=== PATIENT | female | born 1945 | race Caucasian/White ===

== ENCOUNTER 2019-04-19 12:08 | Observation (INO) | payer MEDICARE, SELFPAY ==
[2019-04-19] VITALS (7 sets, daily range): BP systolic 124–156; BP diastolic 57–92; PULSE 80–96; RESP 15–18; TEMP 36.4–36.7; O2SAT 88–97; BMI 32.4; BMI 32.5; BMI 31.8
--- NOTE | 2019-04-19 12:23 | ED.DCSUM_ITS ---
History of Present Illness Chief Complaint: Flank Pain Detail of Chief Complaint: Right flank pain Informant: Patient Onset: Today Context: Sudden Onset Timing: Continuous - Improved but not resolved Current Severity: Mild Maximum Severity: Moderate Narrative: Patient reports rather abrupt onset of right flank pain this morning. She had some nausea and dry heaves with the pain. She denies any recent dysuria or hematuria. Pain seemed to improve while in route to the hospital. Patient does report chronic right upper quadrant pain radiating into her right breast. This has been ongoing for several years and unchanged from baseline. - Past Medical History (1) CAD (coronary artery disease) Status: Chronic Comment: cath in the past with 20% (2) PAD (peripheral artery disease) Status: Chronic Past Medical History - Allergies and Home Meds Allergies/Adverse Reactions: Allergies Iodinated Contrast- Oral and IV Dye [DYEE] Allergy (Verified 04/19/19 12:12) Hives latex Allergy (Verified 04/19/19 12:12) Hives Penicillins Allergy (Verified 04/19/19 12:12) Hives Primary Care Physician: Marky Henderson MD [Primary Care Provider] - Prior records reviewed: Yes Past Medical History: - - Reviewed Surgical History: - - heart cath in 1194, parital hysterectemy, elbow surger, tumor removed on chest. Laparoscopic right hemicolectomy in 2016 Smoking Status: Former smoker - Family History Sibling Family History: Reports: Asthma, Pulmonary Disease, Renal Disease Maternal Family History: Reports: High Cholesterol, Heart Disease, Hypertension Paternal Family History: Reports: Pulmonary Disease Offspring Family History: Reports: Diabetes Review of Systems All systems negative except as indicated General: Denies: Chills, Fever Eyes: Denies: Visual changes - left, Visual changes - right ENT: Denies: Bilateral ear pain Cardiovascular: Denies: Chest pain, Palpitations Respiratory: Denies: Dyspnea, Cough, Sputum Gastrointestinal: Reports: Abdominal pain - Right flank pain, Nausea - With dry heaves Genitourinary: Denies: Dysuria, Hematuria, Frequency Musculoskeletal: Reports: Back pain - Right flank. Denies: Myalgias, Arthralgias Skin: Denies: Rash Neurological: Denies: Headache Endocrine: Denies: Polyuria, Polydipsia Allergy: Denies: Uticaria Physical Exam Vital Signs/Narrative: Vital Signs Temp Pulse Resp BP Pulse Ox 04/19/19 12:12 96 15 156/84 H 96 04/19/19 12:09 98.0 F 85 16 156/84 H 95 Inital Vital Signs reviewed: Yes General: Well nourished, Well developed Head: Normocephalic ENT: Moist mucous membranes Neck: Supple Cardiovascular: Regular rate, Regular rhythm Respiratory: No distress, CTA bilaterally Abdomen: Soft, Nontender, Normal bowel sounds Back: CVA tenderness - Mild tenderness in the right CVA region. Extremities: Nontender, No edema Skin: Normal color, No rash Neurological: Alert, Oriented x3 Psychological: Normal affect Diagnostic/Tx/Re-eval Impressions Abdomen/Pelvis CT 04/19/19 12:23 IMPRESSION: Mild hepatomegaly and fatty dictation of the liver. Diverticulosis in the left colon. Stable small cyst in the lower pole of the left kidney. Mild scarring at the lung bases. Electronically Signed: Delroy Tete, at 13:32 EDT , Service support , 04/19/19 12:23 Abdomen/Pelvis without Cont [CT] Stat Laboratory Results 04/19/19 04/19/19 04/19/19 12:38 12:38 12:38 WBC 10.8 RBC 5.05 Hgb 15.6 H Hct 47.2 H MCV 93.5 MCH 30.9 MCHC 33.1 RDW Std Deviation 44.1 H RDW Coeff of Jm 12.9 Plt Count 303 MPV 10.1 Immature Gran % (Auto) 0.400 Neut % (Auto) 86.8 H Lymph % (Auto) 8.4 L [place] % (Auto) 3.7 Eos % (Auto) 0.1 Baso % (Auto) 0.6 Absolute Neuts (auto) 9.4 H Absolute Lymphs (auto) 0.91 Absolute Nucleated RBC 0.00 Nucleated RBC % 0 D-Dimer Quant (PE/DVT) Sodium 135 L Potassium 4.6 Chloride 105 Carbon Dioxide 22.0 Anion Gap 8 BUN 11 Creatinine 0.97 Estim Creat Clear Calc 47.17 Est GFR (MDRD) Af Amer 73 Est GFR (MDRD) Non-Af 60 BUN/Creatinine Ratio 11.4 Glucose 152 H Calcium 9.2 Urine Color Yellow Urine Clarity Sl. Cloudy Urine pH 5.0 Ur Specific [place] 1.025 Urine Protein 30 H Urine Glucose (UA) Normal Urine Ketones 150 H Urine Occult Blood 10 H Urine Nitrite Negative Urine Bilirubin Negative Urine Urobilinogen Normal Ur Leukocyte Esterase 25 H Urine RBC 0-5 SEEN Urine WBC 0-5 SEEN Ur Squamous Epith Cells 5-10 SEEN Urine Bacteria 1+ Urine Mucus 2+ 04/19/19 04/19/19 15:43 16:51 WBC RBC Hgb Hct MCV MCH MCHC RDW Std Deviation RDW Coeff of Jm Plt Count MPV Immature Gran % (Auto) Neut % (Auto) Lymph % (Auto) [place] % (Auto) Eos % (Auto) Baso % (Auto) Absolute Neuts (auto) Absolute Lymphs (auto) Absolute Nucleated RBC Nucleated RBC % D-Dimer Quant (PE/DVT) Cancelled 0.46 Sodium Potassium Chloride Carbon Dioxide Anion Gap BUN Creatinine Estim Creat Clear Calc Est GFR (MDRD) Af Amer Est GFR (MDRD) Non-Af BUN/Creatinine Ratio Glucose Calcium Urine Color Urine Clarity Urine pH Ur Specific [place] Urine Protein Urine Glucose (UA) Urine Ketones Urine Occult Blood Urine Nitrite Urine Bilirubin Urine Urobilinogen Ur Leukocyte Esterase Urine RBC Urine WBC Ur Squamous Epith Cells Urine Bacteria Urine Mucus - Medical Decision Making Patient was initially given morphine, Zofran, and IV fluids. Shortly after returning from CT scan her pain recurred. She is given a second dose of morphine and Zofran. Following this her O2 sats did drop into the 80s and she was placed on nasal cannula. On my initial repeat evaluation she is resting comfortably and states her pain is significantly improved. Her oxygen was turned off and she maintained her sats in the mid 90s. I went to get her glass of water and when I returned patient was again vomiting. I was advised by nursing staff a short time later that her oxygen saturation had again dropped to 88% on room air and nasal cannula was replaced. We questioned potential for atypical presentation for PE and that she was having mid back pain to the right flank area. Her d-dimer returns negative. Patient again has had another episode of vomiting and was given Phenergan. We will admit her for flank pain, improved and intractable vomiting. Disposition: Admit ED Disposition - Plan for ED Patient: Disposition: Acute Care [facility] Diagnosis: Flank pain, Intractable vomiting Referrals: Marky Henderson MD [Primary Care Provider] -
--- NOTE | 2019-04-19 12:23 | CT_ITS ---
STUDY: CT ABDOMEN AND PELVIS WITHOUT CONTRAST REASON FOR EXAM: Female, 73 years old. Right flank pain. Prior right hemicolectomy. RADIATION DOSAGE (If Supplied By Facility): CTDIvol = ( 13.59 ) mGy, DLP = ( 743.48 ) mGycm TECHNIQUE: Transaxial images were obtained from the dome of the diaphragm to the symphysis pubis without oral contrast, and without intravenous contrast. Sagittal and coronal images were reconstructed. Individualized dose optimization techniques were used for this CT. COMPARISON: Comparison is made with prior study dated August 06, 2017. FINDINGS: Mild degree of scarring at the lung bases slightly more prominent on the left side. Coronary artery calcification. There is decreased attenuation of the liver consistent with steatosis. Mild hepatomegaly. Normal gallbladder and extrahepatic biliary system. Normal spleen. Normal pancreas. Normal bilateral adrenal glands. Normal right kidney. Stable 1.2 cm cyst in the lower pole of the left kidney. There is a small hiatal hernia. Normal small intestine. Prior right hemicolectomy. Diffuse diverticulosis of the left hemicolon. There are surgical clips in the region of the appendix consistent with a prior appendectomy. There is diffuse atherosclerotic calcification of the abdominal aorta and its major visceral branches, without a demonstrated aneurysm. Normal inferior vena cava. Normal retroperitoneum. Normal urinary bladder. There is absence of the uterus consistent with a prior hysterectomy. There is a small umbilical hernia containing fat. There are diffuse degenerative changes of the visualized lumbar spine. CT/Abdomen/Pelvis without Cont IMPRESSION: Mild hepatomegaly and fatty dictation of the liver. Diverticulosis in the left colon. Stable small cyst in the lower pole of the left kidney. Mild scarring at the lung bases. Electronically Signed: Delroy Epstein, at 13:32 EDT , Service support ,
[2019-04-19] MEDS: Morphine 4 MG/ML Syringe IV ×2 (12:43→13:30)
[2019-04-19] MEDS: Ondansetron 4 MG/2 ML Vial IV ×2 (12:43→13:30)
[2019-04-19] MEDS: 0.9% Normal Saline 1,000 ML 150 ML IV (12:43)
[2019-04-19 12:45] LABS: Color, Urine Yellow (Yellow); Glucose, Dipstick Normal (Normal); Leukocyte Esterase-Dipstick 25 /ul (Negative); Nitrite-Dipstick Negative (Negative); Occult Blood-Urine 10 /ul (Negative); Protein-Dipstick 30 mg/dl (Negative); Specific Gravity, Urine 1.025 (1.002-1.030); Urine Bilirubin Dipstick Negative (Negative); Urine Clarity Sl. Cloudy (Clear); Urine Urobilinogen Normal (Normal)
[2019-04-19 12:46] LABS: Absolute Lymphocyte Count 0.91 X10^3/uL (0.83-4.51); Absolute Neutrophil Count 9.4 X10^3/uL (2.0-7.7); Basophil# 0.06 X10^3/uL; Basophil% 0.6 % (0-1); Eosinophil# 0.01 X10^3/uL; Eosinophils% 0.1 % (0-5); Hematocrit 47.2 % (37-47); Hemoglobin 15.6 g/dL (12.0-15.0); Lymphocyte # 0.91 X10^3/ul (4.0); Lymphocyte % 8.4 % (19-41); Mean Corp Hgb Conc 33.1 g/dL (32-36); Mean Corpuscular Hgb 30.9 pg (27.0-32.0); Mean Corpuscular Volume 93.5 fL (81-99); Mean Platelet Vol. 10.1 fl (6.2-12.0); Monocyte% 3.7 % (0-10); NRBC Flagged by Analyzer 0 % (0-5); Neutrophil % 86.8 % (47-70); Platelet Count 303 K/mm3 (150-450); RBC Distribution Width CV 12.9 % (11.6-14.6); RBC Distribution Width SD 44.1 fl (35.1-43.9); Red Blood Count 5.05 M/mm3 (4.2-5.4); White Blood Count 10.8 K/mm3 (4.4-11.0)
[2019-04-19 12:49] LABS: Ketone-Dipstick 150 mg/dl (Negative)
[2019-04-19 12:51] LABS: Red Blood Cells-Urine 0-5 SEEN /hpf (0-5); White Blood Cells 0-5 SEEN /hpf (0-5)
[2019-04-19 12:52] LABS: Bacteria 1+ /hpf (None Seen); Mucous, Urine 2+ /hpf (<or=2+); Squamous Epithelial Cells - UA 5-10 SEEN /hpf (5-10)
[2019-04-19 13:08] LABS: Anion Gap 8 (5-15); BUN 11 mg/dL (7-18); BUN/Creat Ratio 11.4 RATIO (10-20); Calcium,Total 9.2 mg/dL (8.5-10.1); Chloride 105 mmol/L (98-107); Creatinine, Serum 0.97 mg/dL (0.55-1.02); EST Glomerular Filtration Rate 60 mL/min (>60); Est Glom Filt Rate - Afr Amer 73 mL/min (>60); Estimated Creatinine Clearance 47.17 ml/min; Glucose 152 mg/dL (74-106); Potassium 4.6 mmol/L (3.5-5.1); Sodium Level 135 mmol/L (136-145)
[2019-04-19] MEDS: Ketorolac 15 MG/ML Vial IV (13:30)
[2019-04-19] MEDS: proMETHazine 25 MG/ML Syringe 6.25 MG IV (15:54)
--- NOTE | 2019-04-19 16:43 | NURSING ---
BLUE TOP NEEDS REDRAWN HEMOLIZED NURSE INFORMED
[2019-04-19 17:09] LABS: D-Dimer Quantitative (DVT/PE) 0.46 FEU/ug/m (0.27-0.49)
--- NOTE | 2019-04-19 17:52 | PCM.HP.STD ---
Problem List (1) Flank pain Status: Acute (2) PNA (pneumonia) Status: Inactive (3) CAD (coronary artery disease) Status: Chronic Comment: cath in the past with 20% (4) PAD (peripheral artery disease) Status: Chronic History of Present Illness Date of Admission: 04/19/19 Chief Complaint: Right flank pain this morning. The patient is a 73 year old F with history of coronary artery disease and other comorbidities mentioned above came to ED with right flank pain this morning. Patient also had nausea and dry heaves. She denies burning micturition, hematuria or increased frequency urgency. The patient denies fever or chills. Patient complaining of right flank and right upper quadrant pain with radiation to right breast. She had mammogram done in March and was normal as per the patient. She has on and off pain since right hemicolectomy in August 2016 for abnormal ascending colon polyp by Dr. Delaney. CT abdomen was done did not show any acute cause for abdominal pain. In ED, the patient did not have any fever and vital signs stable until IV morphine was given for flank pain and her oxygen dropped to 88% on room air, currently 95% on 3 L of oxygen. Patient denies any history of COPD or home oxygen. Chest x-ray did not show any acute chest pathology. [] Past Medical History Past Medical History (Chronic Problems): Chronic Problems PAD (peripheral artery disease) (Chronic) CAD (coronary artery disease) (Chronic) cath in the past with 20% Allergies Iodinated Contrast- Oral and IV Dye [DYEE] Allergy (Verified 04/19/19 12:12) Hives latex Allergy (Verified 04/19/19 12:12) Hives Penicillins Allergy (Verified 04/19/19 12:12) Hives Home Medications: Ambulatory Orders Medication Instructions Recorded Ascorbic Acid [C-1000] 1,000 mg PO DAILY 09/29/15 Aspirin E.C. [Ecotrin] 81 mg PO DAILY 09/29/15 Isosorbide Mononitrate [Isosorbide 30 mg PO DAILY 09/29/15 Mononitrate ER] L.acidoph,Paracasei, B.lactis 1 each PO QHS 06/08/17 [Probiotic] Pantoprazole Sodium [Protonix] 40 mg PO DAILY 06/08/17 Cholecalciferol (Vitamin D3) 2,000 unit PO DAILY 08/15/17 [Vitamin D3] Multivitamin with Minerals 1 ea PO DAILY 04/18/19 [Multiple Vitamin] [place] Red 1 cap PO DAILY 04/18/19 Surgical History: - - heart cath in 1194, parital hysterectemy, elbow surger, tumor removed on chest. Laparoscopic right hemicolectomy in 2016 Smoking Status: Former smoker Tobacco Use: Cigarettes - Quit the smoking. 2016 - *Family History Sibling History Items: Asthma, Pulmonary Disease, Renal Disease Maternal History Items: High Cholesterol, Heart Disease, Hypertension Paternal History Items: Pulmonary Disease Offspring History Items: Diabetes Review of Systems Constitutional: Denies: Chills, Fever, Weight Change HEENT: Denies: Head Aches, Sinus Congestion, Sinus Drainage Cardiovascular: Denies: Chest Pain, Palpitations Respiratory: Denies: Cough, Shortness of breath at rest, Sputum production Gastrointestinal: Reports: Abdominal Pain, Nausea. Denies: Vomiting Genitourinary: Denies: Dysuria Musculoskeletal: Denies: Joint Pain, Joint Tenderness Skin: Denies: Rash, Wounds Neurological: Denies: Numbness, Tingling, Focal weakness Psychiatric: Denies: Anxiety, Depression, Homicidal Ideations, Suicidal Ideations Hematologic/ Lymphatic: Denies: Easy Bruising, Easy Bleeding VTE Information - Inpt Only VTE Present on Admission: No VTE Mechan Device Prophylaxis: None VTE Pharm Prophylaxis ordered?: Yes - Physical Exam General: Alert, Oriented x3, Cooperative HEENT: Atraumatic, PERRLA, EOMI, Normocephalic Neck: Supple, No JVD, Negative Carotid Bruits Lungs: Clear to auscultation, No rhonchi, No wheeze, No rales, Diminished - Air entry is diminished in bilateral lung bases. Cardiovascular: Regular rate, Regular Rhythm, Normal S1, Normal S2, No murmurs Abdomen: Bowel Sounds Present, Soft, Non-Distended, Tender - Mild tenderness present in right rib costal line, mainly muscular pain Extremities: Capillary Refill Less than 3 Seconds, Edema - Mild ankle edema. Skin: No rashes, No breakdown Musculoskeletal: No Tenderness to Palpation of Joints or Extremities, Arthritic Changes Neurological: Cranial nerves II-XII grossly intact, Deep Tendon Reflexes 2+/4 and Symmetrical, Neuro grossly intact, Motor Exam 5/5 strength throughout Psych/Mental Status: Normal Affect, Appropriate Vital Signs Temp Pulse Resp BP Pulse Ox 98.0 F 81 16 151/87 H 95 04/19/19 12:09 04/19/19 17:33 04/19/19 17:33 04/19/19 17:33 04/19/19 17:33 Oxygen Flow Rate (L/min) 3 Oxygen Delivery Method Nasal Cannula Weight: 195 lb 1.745 oz Body Mass Index (BMI) 32.4 Laboratory Tests Past 24 Hrs 04/19/19 04/19/19 04/19/19 12:38 12:38 12:38 WBC 10.8 RBC 5.05 Hgb 15.6 H Hct 47.2 H MCV 93.5 MCH 30.9 MCHC 33.1 RDW Std Deviation 44.1 H RDW Coeff of Jm 12.9 Plt Count 303 MPV 10.1 Immature Gran % (Auto) 0.400 Neut % (Auto) 86.8 H Lymph % (Auto) 8.4 L [place] % (Auto) 3.7 Eos % (Auto) 0.1 Baso % (Auto) 0.6 Absolute Neuts (auto) 9.4 H Absolute Lymphs (auto) 0.91 Absolute Nucleated RBC 0.00 Nucleated RBC % 0 D-Dimer Quant (PE/DVT) Sodium 135 L Potassium 4.6 Chloride 105 Carbon Dioxide 22.0 Anion Gap 8 BUN 11 Creatinine 0.97 Estim Creat Clear Calc 47.17 Est GFR (MDRD) Af Amer 73 Est GFR (MDRD) Non-Af 60 BUN/Creatinine Ratio 11.4 Glucose 152 H Calcium 9.2 Urine Color Yellow Urine Clarity Sl. Cloudy Urine pH 5.0 Ur Specific [place] 1.025 Urine Protein 30 H Urine Glucose (UA) Normal Urine Ketones 150 H Urine Occult Blood 10 H Urine Nitrite Negative Urine Bilirubin Negative Urine Urobilinogen Normal Ur Leukocyte Esterase 25 H Urine RBC 0-5 SEEN Urine WBC 0-5 SEEN Ur Squamous Epith Cells 5-10 SEEN Urine Bacteria 1+ Urine Mucus 2+ 04/19/19 04/19/19 15:43 16:51 WBC RBC Hgb Hct MCV MCH MCHC RDW Std Deviation RDW Coeff of Jm Plt Count MPV Immature Gran % (Auto) Neut % (Auto) Lymph % (Auto) [place] % (Auto) Eos % (Auto) Baso % (Auto) Absolute Neuts (auto) Absolute Lymphs (auto) Absolute Nucleated RBC Nucleated RBC % D-Dimer Quant (PE/DVT) Cancelled 0.46 Sodium Potassium Chloride Carbon Dioxide Anion Gap BUN Creatinine Estim Creat Clear Calc Est GFR (MDRD) Af Amer Est GFR (MDRD) Non-Af BUN/Creatinine Ratio Glucose Calcium Urine Color Urine Clarity Urine pH Ur Specific [place] Urine Protein Urine Glucose (UA) Urine Ketones Urine Occult Blood Urine Nitrite Urine Bilirubin Urine Urobilinogen Ur Leukocyte Esterase Urine RBC Urine WBC Ur Squamous Epith Cells Urine Bacteria Urine Mucus Assessment/Plan All Active Problems Flank pain (Acute) The patient is a 73 year old F with history of coronary artery disease and other comorbidities mentioned above came to ED with right flank pain this morning. Patient also had nausea and dry heaves. She denies burning micturition, hematuria or increased frequency urgency. The patient denies fever or chills. Patient complaining of right flank and right upper quadrant pain with radiation to right breast. In ED, the patient did not have any fever and vital signs stable until IV morphine was given for flank pain and her oxygen dropped to 88% on room air, currently 95% on 3 L of oxygen. Patient denies any history of COPD or home oxygen. Chest x-ray did not show any acute chest pathology. 1. Acute respiratory insufficiency after IV morphine: Patient is being admitted on [facility] on supplemental oxygen. Incentive spirometry ordered. Patient does not have acute shortness of breath, tachypnea, cough or URI symptoms. Bronchodilator as needed. Patient will need further outpatient PFT to rule out COPD. Patient had previous PFT about 19 years ago, outside hospital for which she does not remember the result. 2. Right flank/right upper quadrant abdominal pain mainly rib musculoskeletal pain/scar tissue:Pain control. Incentive spirometry. UA is negative of significant pyuria. Nitrite negative. She has on and off pain since surgery for colectomy after abnormal polyp was found on colonoscopy by Dr. Delaney. CT abdomen was done did not show any acute cause for abdominal pain. She had mammogram done in March and was normal as per the patient. 3. Coronary artery disease stable. EKG shows sinus tachycardia at [address]-T changes. Patient denies midsternal or left-sided chest pain. Troponin is ordered. 4. Other chronic comorbidities include GERD and low functional capacity: PT and OT is ordered. Home medications reconciliation done. DVT prophylaxis: Lovenox 40 mg subcut daily. Laboratory Results 04/19/19 12:38: WBC 10.8, RBC 5.05, Hgb 15.6 H, Hct 47.2 H, MCV 93.5, MCH 30.9, MCHC 33.1, RDW Std Deviation 44.1 H, RDW Coeff of Jm 12.9, Plt Count 303, MPV 10.1, Immature Gran % (Auto) 0.400, Neut % (Auto) 86.8 H, Lymph % (Auto) 8.4 L, [place] % (Auto) 3.7, Eos % (Auto) 0.1, Baso % (Auto) 0.6, Absolute Neuts (auto) 9.4 H, Absolute Lymphs (auto) 0.91, Absolute Nucleated RBC 0.00, Nucleated RBC % 0 04/19/19 12:38: Sodium 135 L, Potassium 4.6, Chloride 105, Carbon Dioxide 22.0, Anion Gap 8, BUN 11, Creatinine 0.97, Estim Creat Clear Calc 47.17, Est GFR (MDRD) Af Amer 73, Est GFR (MDRD) Non-Af 60, BUN/Creatinine Ratio 11.4, Glucose 152 H, Calcium 9.2 04/19/19 12:38: Urine Color Yellow, Urine Clarity Sl. Cloudy, Urine pH 5.0, Ur Specific [place] 1.025, Urine Protein 30 H, Urine Glucose (UA) Normal, Urine Ketones 150 H, Urine Occult Blood 10 H, Urine Nitrite Negative, Urine Bilirubin Negative, Urine Urobilinogen Normal, Ur Leukocyte Esterase 25 H, Urine RBC 0-5 SEEN, Urine WBC 0-5 SEEN, Ur Squamous Epith Cells 5-10 SEEN, Urine Bacteria 1+, Urine Mucus 2+ 04/19/19 15:43: D-Dimer Quant (PE/DVT) Cancelled 04/19/19 16:51: D-Dimer Quant (PE/DVT) 0.46 Clinical Impression(s) from Imaging Studies Abdomen/Pelvis CT 04/19/19 12:23 IMPRESSION: Mild hepatomegaly and fatty dictation of the liver. Diverticulosis in the left colon. Stable small cyst in the lower pole of the left kidney. Mild scarring at the lung bases. Chest X-Ray 04/19/19 17:57 IMPRESSION: No acute thoracic pathology. Code Visit OBSV E&M: [id number] Initial observation care L3
--- NOTE | 2019-04-19 17:57 | RAD_ITS ---
STUDY: X-RAY CHEST REASON FOR EXAM: Female, 73 years old. Hypoxia TECHNIQUE: Frontal and lateral views of the chest COMPARISON: 08/11/2016 FINDINGS: The lungs are clear. There are no pleural effusions. There is no pneumothorax. The heart is normal in size. The visualized osseous structures are within normal limits. RAD/Chest PA and Lateral IMPRESSION: No acute thoracic pathology. Electronically Signed: Ej Celestin, at 18:09 EDT Tel , Service support ,
[2019-04-19] MEDS: 0.9% Normal Saline 1,000 ML 75 ML IV (18:38)
[2019-04-19] MEDS: Enoxaparin 40 MG/0.4 ML Syringe SC (18:47)
[2019-04-20 02:40] VITALS: BP 128/57; PULSE 63; RESP 16; TEMP 36.6; O2SAT 95
[2019-04-20 07:12] VITALS: O2SAT 95
[2019-04-20 08:40] VITALS: BP 120/61; PULSE 73; RESP 18; TEMP 37.1; O2SAT 93
[2019-04-20] MEDS: Isosorbide Mononitrate 30 MG Tablet PO (08:54)
[2019-04-20] MEDS: Aspirin E.C. 81 MG Tablet PO (08:54)
[2019-04-20] MEDS: Multivitamins,Ther W-Minerals Tablet 1 TABLET PO (08:54)
[2019-04-20] MEDS: Pantoprazole Sodium 40 MG Tablet PO (08:54)
[2019-04-20] MEDS: Ascorbic Acid 500 MG Tablet 1000 MG PO (08:55)
--- NOTE | 2019-04-20 09:22 | DCINST_ITS ---
- Discharge Diagnoses Current Active Problems: Current Active and Chronic Problems Flank pain (Acute) You will use the following diet at home:: Cardiac Discharge Activity: Return to Normal Activity Call your doctor if you observe: Shortness of breath, Dizziness, Fainting spells, Chest pain Allergies/Adverse Reactions: Allergies Iodinated Contrast- Oral and IV Dye [DYEE] Allergy (Verified 04/19/19 12:12) Hives latex Allergy (Verified 04/19/19 12:12) Hives Penicillins Allergy (Verified 04/19/19 12:12) Hives Medications to take at Discharge Ascorbic Acid [C-1000] 1,000 mg PO DAILY 09/29/15 Aspirin E.C. [Ecotrin] 81 mg PO QHS 09/29/15 Isosorbide Mononitrate [Isosorbide Mononitrate ER] 30 mg PO DAILY 09/29/15 L.acidoph,Paracasei, B.lactis [Probiotic] 1 each PO QHS 06/08/17 Pantoprazole Sodium [Protonix] 40 mg PO DAILY 06/08/17 Cholecalciferol (Vitamin D3) [Vitamin D3] 2,000 unit PO DAILY 08/15/17 Multivitamin with Minerals [Multiple Vitamin] 1 ea PO DAILY 04/18/19 [place] Red 1 cap PO QHS 04/18/19 Primary Care Physician: Marky Henderson MD [Primary Care Provider] - Please follow up with your Primary Care Physician in: 1 Week Test Results: Test results from this visit will be discussed in further detail at your follow- up appointment, if applicable. Proposed Discharge Date: 04/20/19
--- NOTE | 2019-04-20 12:05 | DS.PCM_ITS ---
Discharge Date and Diagnosis Date of Admission: 04/19/19 Date of Discharge: 04/20/19 - Primary Discharge Diagnosis 1. Intractable right flank pain, right upper quadrant abdominal pain-unclear etiology, resolved 2. Acute respiratory insufficiency following morphine administration, not documented to be hypoxic-resolved. 3. CAD 4. GERD - Secondary Discharge Diagnosis Chronic Problems PAD (peripheral artery disease) (Chronic) CAD (coronary artery disease) (Chronic) cath in the past with 20% Hospital Course and Treatment Imaging Results: Diagnostic Data Abdomen/Pelvis CT 04/19/19 12:23 IMPRESSION: Mild hepatomegaly and fatty dictation of the liver. Diverticulosis in the left colon. Stable small cyst in the lower pole of the left kidney. Mild scarring at the lung bases. Electronically Signed: Delroy Epstein, at 13:32 EDT , Service support , Chest X-Ray 04/19/19 17:57 IMPRESSION: No acute thoracic pathology. Electronically Signed: Ej Celestin, at 18:09 EDT Tel , Service support , Operations: None Procedures: None Summary of Care Provided: The patient is a 73 year old F admitted 04/19/2019 due to right flank pain. 1. Intractable right flank pain, right upper quadrant abdominal pain-unclear etiology, resolved. Urinalysis unremarkable. Patient had d-dimer completed due to concern for PE which was normal. CT of abdomen and pelvis showed mild hepatomegaly and fatty liver, small stable cyst in the lower pole of the left kidney, mild scarring at the lung bases. Patient feels as if she passed a stone. She has not had further pain overnight or this morning. Follow-up with primary care provider in 1 week. 2. Acute respiratory insufficiency following morphine administration, not documented to be hypoxic-resolved. Oxygen stable on room air. 3. CAD-continue home aspirin, isosorbide regimen. Troponin negative. Denies chest pain. 4. GERD-continue home PPI regimen. Patient seen and examined prior to discharge. Physical assessment as noted below. Patient is stable for discharge with follow up recommendations as noted above. This patient was seen by ASYA Gandara under the supervision of Dr. Summers. - Physical Exam General: Alert, Oriented x3, Cooperative HEENT: Atraumatic, PERRLA, EOMI, Normocephalic Neck: Supple, No JVD, Negative Carotid Bruits Lungs: Clear to auscultation, Normal air movement Cardiovascular: Regular rate, Regular Rhythm, Normal S1, Normal S2, No murmurs Abdomen: Bowel Sounds Present, Soft, Non Tender, Non-Distended Extremities: No clubbing, No cyanosis, No edema, Capillary Refill Less than 3 Seconds Skin: No rashes, No breakdown Musculoskeletal: No Tenderness to Palpation of Joints or Extremities Neurological: Cranial nerves II-XII grossly intact, Neuro grossly intact Psych/Mental Status: Normal Affect, Appropriate Vital Signs Temp Pulse Resp BP Pulse Ox 98.7 F 73 18 120/61 93 04/20/19 08:40 04/20/19 08:40 04/20/19 08:40 04/20/19 08:40 04/20/19 08:40 Oxygen Flow Rate (L/min) 2 Oxygen Delivery Method Room Air Weight: 191 lb Body Mass Index (BMI) 31.8 Intake and Output for Last 24 Hours 04/18/19 04/19/19 04/20/19 23:59 23:59 23:59 Intake Total 783 / 783 747 / 747 Balance 783 / 783 747 / 747 Laboratory Tests Past 24 Hrs 04/19/19 04/19/19 04/19/19 12:38 12:38 12:38 WBC 10.8 RBC 5.05 Hgb 15.6 H Hct 47.2 H MCV 93.5 MCH 30.9 MCHC 33.1 RDW Std Deviation 44.1 H RDW Coeff of Jm 12.9 Plt Count 303 MPV 10.1 Immature Gran % (Auto) 0.400 Neut % (Auto) 86.8 H Lymph % (Auto) 8.4 L Swisher % (Auto) 3.7 Eos % (Auto) 0.1 Baso % (Auto) 0.6 Absolute Neuts (auto) 9.4 H Absolute Lymphs (auto) 0.91 Absolute Nucleated RBC 0.00 Nucleated RBC % 0 D-Dimer Quant (PE/DVT) Sodium 135 L Potassium 4.6 Chloride 105 Carbon Dioxide 22.0 Anion Gap 8 BUN 11 Creatinine 0.97 Estim Creat Clear Calc 47.17 Est GFR (MDRD) Af Amer 73 Est GFR (MDRD) Non-Af 60 BUN/Creatinine Ratio 11.4 Glucose 152 H Calcium 9.2 Troponin I Urine Color Yellow Urine Clarity Sl. Cloudy Urine pH 5.0 Ur Specific [place] 1.025 Urine Protein 30 H Urine Glucose (UA) Normal Urine Ketones 150 H Urine Occult Blood 10 H Urine Nitrite Negative Urine Bilirubin Negative Urine Urobilinogen Normal Ur Leukocyte Esterase 25 H Urine RBC 0-5 SEEN Urine WBC 0-5 SEEN Ur Squamous Epith Cells 5-10 SEEN Urine Bacteria 1+ Urine Mucus 2+ 04/19/19 04/19/19 04/19/19 12:38 15:43 16:51 WBC RBC Hgb Hct MCV MCH MCHC RDW Std Deviation RDW Coeff of Jm Plt Count MPV Immature Gran % (Auto) Neut % (Auto) Lymph % (Auto) Swisher % (Auto) Eos % (Auto) Baso % (Auto) Absolute Neuts (auto) Absolute Lymphs (auto) Absolute Nucleated RBC Nucleated RBC % D-Dimer Quant (PE/DVT) Cancelled 0.46 Sodium Potassium Chloride Carbon Dioxide Anion Gap BUN Creatinine Estim Creat Clear Calc Est GFR (MDRD) Af Amer Est GFR (MDRD) Non-Af BUN/Creatinine Ratio Glucose Calcium Troponin I < 0.015 Urine Color Urine Clarity Urine pH Ur Specific [place] Urine Protein Urine Glucose (UA) Urine Ketones Urine Occult Blood Urine Nitrite Urine Bilirubin Urine Urobilinogen Ur Leukocyte Esterase Urine RBC Urine WBC Ur Squamous Epith Cells Urine Bacteria Urine Mucus Discharge Diet: Low fat/ Low Cholesterol Discharge Activity: Return to Normal Activity Call your doctor if you observe: Shortness of breath, Dizziness, Fainting spells, Chest pain Home Medications: Medications to take at Discharge Ascorbic Acid [C-1000] 1,000 mg PO DAILY 09/29/15 Aspirin E.C. [Ecotrin] 81 mg PO QHS 09/29/15 Isosorbide Mononitrate [Isosorbide Mononitrate ER] 30 mg PO DAILY 09/29/15 L.acidoph,Paracasei, B.lactis [Probiotic] 1 each PO QHS 06/08/17 Pantoprazole Sodium [Protonix] 40 mg PO DAILY 06/08/17 Cholecalciferol (Vitamin D3) [Vitamin D3] 2,000 unit PO DAILY 08/15/17 Multivitamin with Minerals [Multiple Vitamin] 1 ea PO DAILY 04/18/19 [place] Red 1 cap PO QHS 04/18/19 Primary Care Physician: Marky Henderson MD [Primary Care Provider] - Please follow up with your Primary Care Physician in: 1 Week Disposition: Home Minutes spent on discharge:: 35 Patient Condition:: Stable Medical Necessity - Tobacco Use Smoking Status: Former smoker Tobacco Use: Cigarettes - Quit the smoking. 2016 Meaningful Use Info Meaningful Use Diagnoses (Choose all that apply): None applicable
== END 2019-04-20 10:17 | disposition home or self-care (01) ==
LOC: ED 17:18 → MS3 17:59
PROVIDERS: Admitting Provider Internal Medicine; Emergency Provider Emergency Medicine; Family Provider Family Medicine; PCP Family Medicine; Referring Provider Internal Medicine; Visit Provider Family Medicine
DX: R10.11 Right upper quadrant pain (principal); R06.89 Other abnormalities of breathing; E78.5 Hyperlipidemia, unspecified; I48.0 Paroxysmal atrial fibrillation; I25.10 Atherosclerotic heart disease of native coronary artery without angina pectoris; K21.9 Gastro-esophageal reflux disease without esophagitis; I73.9 Peripheral vascular disease, unspecified; E66.9 Obesity, unspecified; R73.9 Hyperglycemia, unspecified; E87.1 Hypo-osmolality and hyponatremia; I10 Essential (primary) hypertension; Z68.31 Body mass index [BMI] 31.0-31.9, adult; Z71.3 Dietary counseling and surveillance; Z79.899 Other long term (current) drug therapy; Z79.82 Long term (current) use of aspirin; Z87.891 Personal history of nicotine dependence
CPT/HCPCS: 71046; 74176; 80048; 81001; 84484; 85025; 85379; 87086; 87088; 96361; 96372; 96374; 96375; 96376; 99218; 99285; J7030; A4216; G0378; J2405

== ENCOUNTER 2019-05-20 09:54 | Day surgery (SDC) | payer MEDICARE, SELFPAY ==
[2019-05-07 10:14] VITALS: BMI 31.8
--- NOTE | 2019-05-08 10:47 | HP_ITS ---
Intake Vital Signs 05/07/19 Body Mass Index (BMI) 31.8 05/07/19 Height 5 ft 5 in 05/07/19 Weight: 190 lb 3 oz 05/07/19 Body Mass Index (BMI) 31.6 05/07/19 Blood Pressure 136/81 H 05/07/19 Blood Pressure Location Rt brachial 05/07/19 Blood Pressure Position Sitting 05/07/19 Respiratory Rate 16 05/07/19 Pulse Rate 92 05/07/19 Pulse Source Monitor 05/07/19 Temperature 97.8 F 05/07/19 Temperature Source Oral 05/07/19 Pulse Ox 93 05/07/19 Oxygen Delivery Method room air 05/02/19 Body Mass Index (BMI) 31.8 Intake Visit Reasons: C-Scope/EGD - Self Ref, patient states past due Artist Color Separation Required: No Is patient in pain?: No Allergies Iodinated Contrast Media [DYEE] Allergy (Verified 05/07/19 10:10) Hives latex Allergy (Verified 05/07/19 10:10) Hives Penicillins Allergy (Verified 05/07/19 10:10) Hives Medications Ascorbic Acid [C-1000] 1,000 mg PO DAILY 09/29/15 [History Confirmed 05/07/19] Aspirin E.C. [Ecotrin] 81 mg PO QHS 09/29/15 [History Confirmed 05/07/19] Isosorbide Mononitrate [Isosorbide Mononitrate ER] 30 mg PO DAILY 09/29/15 [History Confirmed 05/07/19] L.acidoph,Paracasei, B.lactis [Probiotic] 1 ea PO QHS 06/08/17 [History Confirmed 05/07/19] Pantoprazole Sodium [Protonix] 40 mg PO DAILY 06/08/17 [History Confirmed 05/07/19] Cholecalciferol (Vitamin D3) [Vitamin D3] 2,000 unit PO DAILY 08/15/17 [History Confirmed 05/07/19] Multivitamin with Minerals [Multiple Vitamin] 1 ea PO DAILY 04/18/19 [History Confirmed 05/07/19] [place] Red 1 cap PO QHS 04/18/19 [History Confirmed 05/07/19] psyllium oral powder 2 tsp PO DAILY g 05/07/19 [History Confirmed 05/07/19] PFSH Medical History Hemorrhoids (Acute) Acid reflux (Acute) Constipation (Acute) Nausea (Acute) Abdominal pain (Acute) SOB (shortness of breath) (Acute) Heart disease (Acute) Numbness and tingling (Acute) Back problem (Acute) Arthritis (Acute) Diabetes (Acute) Fatigue (Acute) Flank pain (Acute) PAD (peripheral artery disease) (Chronic) CAD (coronary artery disease) (Chronic) PNA (pneumonia) (Inactive) Surgical History Hx of right hemicolectomy (Acute) Hx of colonoscopy (Acute) History of esophagogastroduodenoscopy (EGD) (Acute) Hx of shoulder surgery (Acute) Hx of elbow surgery (Acute) Hx of foot surgery (Acute) Hx of hysterectomy (Acute) Hx of benign neoplasm (Acute) Hx of appendectomy (Acute) Hx of tonsillectomy (Acute) Family History Brother Asthma Cancer Mother Heart disease Hypertension Arthritis Father Arthritis Cancer Heart disease Sister Arthritis Heart disease Hypertension Lupus Thyroid disorder Social History (Updated 05/08/19 @ 10:49 by Chaparrita Ly PA-C) Smoking Status: Former smoker second hand exposure: No alcohol intake: never substance use type: does not use caffeine: Yes what type of physical activity do you participate in: none frequency: does not exercise HPI HPI HPI: JUJU BROWNE is a 73 F who presents to the office today for HPI HPI Surgical H&P: Yes HPI: JUJU BROWNE is a 73 F who presents to the office today for screening colonoscopy and epigastric pain. Patient notes a 1 month history of increasing upper abdominal pain. She does not relate her symptoms to food. She takes Protonix 40 mg daily. She also notes a history of diarrhea and constipation. Patient notes she was recently in the ED with flank pain. She thought she was possibly passing a kidney stone. She was noted to be dehydrated. She was scheduled with [facility] for an upper and lower scope which was canceled due to her symptoms. Patient is known to Dr. Delaney who performed a laparoscopic right hemicolectomy in 2016 for a non-resectable polyp during colonoscopy. Pathology was noted to be sessile hyperplastic polyp without malignancy. Ten out of ten negative lymph nodes. Patient had a follow-up colonoscopy in 2017 which was limited due to poor bowel prep. She has not had a repeat since that time. Patient denies melena, bright red blood per rectum. She denies heartburn symptoms. ROS General General: Yes weight change, appetite and fatigue; no colon cancer, breast cancer or weakness HEENT HEENT: No difficulty swallowing, eye injury, eye surgery, swollen glands or hoarseness Endo Endocrine: Yes diabetes mellitus; no thyroid disease, thyroid cancer, Hair loss, heat intolerance or cold intolerance Skin Skin: No rash or changing moles Musc Musculoskeletal: Yes back problems and arthritis; no rheumatoid arthritis, gout or joint pain Cardio Cardiovascular: Yes heart disease; no murmur, pacemaker, atrial fibrillation, high blood pressure, heart attack, heart stent, palpitations, shortness of breat with exertion or chest pain Psych Psychiatric: No depression, anxiety or hearing voices Resp Respiratory: Yes shortness of breath, No sleep apnea, No cough, No COPD, No asthma, No emphysema, No wheezing Gastro Gastrointestinal: Yes abdominal pain, Yes nausea or vomiting, No diarrhea, Yes constipation, No blood in stool, Yes acid reflux, Yes hemorrhoids, No ulcers, No gallbladder problem, No black,tarry stools Wale Hematologic: No blood thinners (pt takes ASA 81mg daily), No blood disorders, No bleeding, No anemia, No blood clots Neuro Neurologic: Yes numbness, Yes tingling, No weakness Exam Const General: cooperative, healthy appearing, comfortable, no acute distress HENMT Head: normal to inspection Eyes General: appearance normal, both eyes and all related structures Neck Neck: normal visual inspection Neck mass: No Resp Effort & Inspection: normal respiratory effort Auscultation: clear to auscultation bilaterally Cardio Rate: regular rate Rhythm: regular rhythm Heart Sounds: no murmurs GI Inspection: normal to inspection Palpation: soft, nontender Auscultation: normal bowel sounds Skin General: no rashes or lesions noted Neuro General: no focal motor deficits, CN's II-XI intact bilaterally Extrem General: normal to inspection Psych Appearance: grossly normal Affect: normal affect Assessment & Plan Problems 1. Epigastric pain R10.13 2. Encounter for screening colonoscopy Z12.[address] Delaney will plan to perform an upper and lower endoscopy. Procedure details, risks and benefits have been explained to the patient. Patient has had the opportunity to ask and have questions answered. Patient verbally understands and agrees to proceed with the plan. Golytely will be used for bowel prep. We will have her hold her aspirin and fish oil for 7 days prior to the procedure. Coding Level of Care Code Off vis,est,level 4 Diagnoses Epigastric pain R10.13 ??Abdominal location: epigastric Encounter for screening colonoscopy Z12.11 05/08/19 1049 <Electronically signed by Chaparrita neff PA-C> Date _ Chaparrita Ly PA-C I have re-examined the patient. There are no clinical changes since date of exam.
[2019-05-20 10:11] VITALS: BP 116/85; PULSE 101; RESP 18; TEMP 35.8; O2SAT 95; BMI 31.0
--- NOTE | 2019-05-20 11:06 | OP.ENDO_ITS ---
05/20/2019 Marky Henderson [address] [place] [address] Re : Upper GI endoscopy procedure for Caitlyn Schwab Dear Dr. Henderson This procedure was performed on Monday, May 20, 2019. My impressions and recommendations are as follows: Impressions : - Small hiatal hernia. No specimens collected. - Normal stomach. Biopsied. - Normal examined duodenum. No specimens collected. Recommendations : - Discharge patient to home. - Resume previous diet. - Continue present medications. - Await pathology results. - Repeat upper endoscopy (date not yet determined) to evaluate the response to therapy. - Return to my office in 1 week. My findings are described in the full procedure note, which is enclosed. If I can be of further assistance, please feel free to contact me at Doctor phone number(s): , Fax: [phone], Work: . Sincerely, MD Luciano Baig MD 05/20/2019 11:06:03 AM This report has been signed electronically.
[2019-05-20 11:10] VITALS: BP 116/85; BP 99/71; PULSE 93; RESP 16; TEMP 36.8; O2SAT 93
--- NOTE | 2019-05-20 11:11 | OP.ENDO_ITS ---
05/20/2019 Marky Henderson [address] [place] [address] Re : Colonoscopy procedure for Caitlyn Schwab Dear Dr. Henderson This procedure was performed on Monday, May 20, 2019. My impressions and recommendations are as follows: Impressions : - Diverticulosis in the sigmoid colon and in the descending colon. No specimens collected. - The examination was otherwise normal. Recommendations : - Discharge patient to home. - Resume previous diet. - Continue present medications. - Repeat colonoscopy in 5 years for surveillance. - Return to my office in 1 week. My findings are described in the full procedure note, which is enclosed. If I can be of further assistance, please feel free to contact me at Doctor phone number(s): , Fax: [phone], Work: . Sincerely, MD Luciano Baig MD 05/20/2019 11:10:25 AM This report has been signed electronically.
[2019-05-20 11:14] VITALS: BP 106/80; BP 116/85; PULSE 91; RESP 16; O2SAT 93
[2019-05-20 11:15] VITALS: BP 108/83; BP 116/85; PULSE 90; RESP 16; O2SAT 93
--- NOTE | 2019-05-20 11:15 | IMM_PTH ---
PATIENT: JUJU BROWNE LOC: EN U#:[id number] AGE/SX: 73/F ROOM: RE05/20/[address]: Dr. Luciano Delaney MD : 1945 BED: DIS: 05/20/2019 SPEC #: [id number] RECD: 05/20/19 11:55 STATUS: JUDAH REQ #: [id number] KAYLIN: 05/20/19 11:[address]: Luciano Delaney DEPT: IMMUNOHISTOCHEMISTRY RECD BY: Makayla Ronquillo ENTERED: 05/20/19 11:55 SP TYPE: IMMUNO OTHR DR: Dr. Marky Henderson MD Tissues: Stomach, NOS Procedures: H Pylori (initial) PHYSICIAN & INSTITUTION [place] [id number] SPECIMEN INFORMATION: Tissue Source: Antrum biopsy Clinical Info: Epigastric pain, screening Specimen Number: [id number] CPT code: 89316 METHODOLOGY: Deparaffinized sections of prefer/formalin-fixed tissue or PAP/DQ stained slides are incubated with monoclonal/polyclonal antibodies/oligonucleotide probes. Localization is made via biotin free immunoperoxidase method. Appropriate controls are performed and reacted as expected. Results on target cell population are indicated in the following table: RESULTS: ANTIBODY / CLONE RESULT H Pylori (polyclonal) negative These tests were developed and their performance characteristics determined by [facility]. They may not have been cleared or approved by the U.S. Food and Drug Administration. The FDA has determined that such clearance or approval is not necessary. INTERPRETATION: Antrum biopsy: Negative for Helicobacter pylori organisms. GONZALEZ:tierra 05/21/19
--- NOTE | 2019-05-20 11:15 | EGD_PTH ---
PATIENT: JUJU BROWNE LOC: EN U#:[id number] AGE/SX: 73/F ROOM: RE05/20/[address]: Dr. Luciano Delaney MD : 1945 BED: DIS: 05/20/2019 SPEC #: [id number] RECD: 05/20/19 11:26 STATUS: JUDAH NADIYA #: [id number] KAYLIN: 05/20/19 11:[address]: Luciano Delaney DEPT: SURGICAL PATHOLOGY RECD BY: Duyen Salazar ENTERED: 05/20/19 12:03 SP TYPE: EGD BIOPSY OTHR DR: Dr. Marky Henderson MD Tissues: Gastric mucous membrane Procedures: Surgery Specimen Level IV HEADER OPERATION: Colonoscopy, EGD ([facility]) PRE-OP DIAGNOSIS: Epigastric pain, screening of colon TISSUE SUBMITTED: Antrum biopsy for H. pylori and path MICROSCOPIC DIAGNOSIS Antrum biopsy: Minimal chronic inflammation. See comment. SJ:tierra 05/21/19 COMMENT The results of immunohistochemistry for Helicobacter pylori will be reported separately ([id number]). MICROSCOPIC DESCRIPTION Slides are reviewed. GROSS DESCRIPTION Received in fixative is one container labeled with the patient's name and designated antrum biopsy. The specimen consists of two irregular fragments of light beaver soft tissue that in aggregate measure 1 x 0.1 x 0.1 cm. The specimen is totally submitted in one cassette. / SJ:tierra 05/20/19 TC:3 CPT: 63709
[2019-05-20 11:16] VITALS: BP 111/80; BP 116/85; PULSE 90; RESP 16; TEMP 36.4; O2SAT 92
[2019-05-20 11:33] VITALS: BP 116/85
[2019-05-20 11:50] LABS: Bedside Glucose 120 mg/dL (70-110)
== END 2019-05-20 11:43 | disposition home or self-care (01) ==
LOC: EN 09:54 → AC 09:57
PROVIDERS: Family Provider Family Medicine; PCP Family Medicine; Referring Provider Surgery; Visit Provider Surgery
PROC: 0DJD8ZZ Inspection of Lower Intestinal Tract, Via Natural or Artificial Opening Endoscopic (ICD-10-PCS; CPT 45378; principal; 2019-05-20 10:25)
DX: Z12.11 Encounter for screening for malignant neoplasm of colon (principal); K57.30 Diverticulosis of large intestine without perforation or abscess without bleeding; K44.9 Diaphragmatic hernia without obstruction or gangrene; K29.70 Gastritis, unspecified, without bleeding; K21.9 Gastro-esophageal reflux disease without esophagitis; E11.9 Type 2 diabetes mellitus without complications; M19.90 Unspecified osteoarthritis, unspecified site; I73.9 Peripheral vascular disease, unspecified; I11.9 Hypertensive heart disease without heart failure; I25.10 Atherosclerotic heart disease of native coronary artery without angina pectoris; Z87.891 Personal history of nicotine dependence; Z79.82 Long term (current) use of aspirin; Z79.899 Other long term (current) drug therapy
CPT/HCPCS: 43239; G0121; 82962; 88305; 88342; J7120

== ENCOUNTER 2021-09-05 21:42 | Emergency (ER) | payer MEDICARE, SELFPAY ==
[2021-09-05 21:44] VITALS: BP 175/74; PULSE 106; RESP 18; TEMP 37.1; O2SAT 95; BMI 30.7
--- NOTE | 2021-09-05 21:57 | RAD_ITS ---
INDICATION: FEVER COUGH EXAMINATION/TECHNIQUE: X-RAY - XR Chest 1 View COMPARISON: 04/19/2018 chest x-ray. FINDINGS: LINES/DEVICES: None. LUNGS: Symmetric normal lung volumes. No airspace opacity or abnormal interstitial pattern. There is slight blunting left costophrenic angle suggesting small pleural effusion. No pneumothorax. MEDIASTINUM AND CARDIOVASCULAR STRUCTURES: Normal size and contour of the cardiomediastinal silhouette. No evidence of pulmonary vascular congestion. Thoracic aortic arch vascular calcifications. BONES AND SOFT TISSUES: No abnormality within limits of the exam. RAD/Chest 1 View (Portable) IMPRESSION: 1. Tiny left pleural effusion. Electronically Signed: Brett Rincon DO at 22:25 EST Tel , Service support ,
[2021-09-05 22:36] LABS: Anion Gap 4 (5-15); BUN 11 mg/dL (7-18); BUN/Creat Ratio 14.2 RATIO (10-20); Calcium,Total 9.4 mg/dL (8.5-10.1); Chloride 106 mmol/L (98-107); Creatinine, Serum 0.78 mg/dL (0.55-1.02); EST Glomerular Filtration Rate 77 mL/min (>60); Est Glom Filt Rate - Afr Amer 93 mL/min (>60); Estimated Creatinine Clearance 44.41 ml/min; Glucose 102 mg/dL (74-106); Sodium Level 139 mmol/L (136-145)
[2021-09-05 22:44] LABS: Absolute Lymphocyte Count 1.17 X10^3/uL (0.83-4.51); Absolute Neutrophil Count 3.8 X10^3/uL (2.0-7.7); Basophil% 1.7 % (0-1); Eosinophil# 0.08 X10^3/uL; Eosinophils% 1.3 % (0-5); Hemoglobin 15.1 g/dL (12.0-15.0); Lymphocyte # 1.17 X10^3/ul (0.83-4.51); Lymphocyte % 19.5 % (19-41); Mean Corp Hgb Conc 32.8 g/dL (32-36); Mean Corpuscular Hgb 30.7 pg (27.0-32.0); Mean Corpuscular Volume 93.5 fL (81-99); Mean Platelet Vol. 9.6 fl (6.2-12.0); Monocyte# 0.81 X10^3/uL; Monocyte% 13.5 % (0-10); NRBC Flagged by Analyzer 0 % (0-5); Neutrophil # 3.83 X10^3/uL (2.7-7.7); Neutrophil % 63.8 % (47-70); Platelet Count 284 K/mm3 (150-450); RBC Distribution Width CV 12.9 % (11.6-14.6); RBC Distribution Width SD 44.5 fl (35.1-43.9); Red Blood Count 4.92 M/mm3 (4.2-5.4)
[2021-09-05 22:59] VITALS: RESP 20; O2SAT 93
--- NOTE | 2021-09-05 23:01 | EDS_ITS ---
HPI HPI - URI History of Present Illness Chief Complaint: Cold Sx Informant: patient Onset/Context/Timing Onset: Days Context: Gradual Onset Timing: Continuous Current Severity: Mild Maximum Severity: Mild Associated Symptoms Associated Symptoms: Positive for Myalgias and Nonproductive cough; Negative for Nausea, Vomiting and Diarrhea Narrative Narrative: 75-year-old female history of diabetes, renal sufficiency. Said yesterday she developed a temperature of 100.4. With a dry nonproductive cough. Denies any nausea vomiting diarrhea. No dysuria. No abdominal pain. She is unvaccinated for Covid. Prior similar symptoms: Yes Recent Illness/Hospitalization: No ROS ROS ED ROS Narrative Cough. Low-grade fever. Myalgias. Review of Systems ROS Unobtainable: Denies due to encephalopathy Constitutional Constitutional ED: Reports fever(s) Eyes Eyes: Denies change in vision ENT ENT ED: Denies ear pain, rhinorrhea or sore throat Cardiovascular Cardiovascular: Denies chest pain Respiratory/Chest Respiratory/Chest: Reports cough; Denies dyspnea Gastrointestinal Gastrointestinal: Denies abdominal pain, diarrhea, nausea or vomiting Genitourinary Genitourinary ED: Denies dysuria or hematuria Musculoskeletal Musculoskeletal: Reports myalgias Integumentary Denies rash Neurologic Neurologic: Denies headache(s) Psychiatric Psychiatric: Denies depression Endocrine Endocrinology: Denies polyuria Hematologic/Lymphatic Hematologic/Lymphatic: Denies easy bruising Allergic/Immunologic Allergic/Immunologic ED: Denies urticaria PFSH PFSH Medical History Abdominal pain Acid reflux Arthritis Back problem CAD (coronary artery disease) Constipation Diabetes Fatigue Flank pain Heart disease Hemorrhoids Nausea Numbness and tingling PAD (peripheral artery disease) PNA (pneumonia) SOB (shortness of breath) Home Medications ascorbic acid (vitamin C) 1,000 mg PO DAILY 09/29/15 [History Last Taken 04/12/19] aspirin 81 mg PO QHS 09/29/15 [History Last Taken 04/18/19] isosorbide mononitrate 30 mg PO DAILY 09/29/15 [History Last Taken 04/19/19] L.acidoph, paracasei,B. lactis 1 ea PO QHS 06/08/17 [History Last Taken 04/12/19] pantoprazole 40 mg PO DAILY 09/07/17 [History Last Taken 04/19/19] cholecalciferol (vitamin D3) 2,000 unit PO DAILY 08/15/17 [History Last Taken 04/12/19] [place] Red 1 cap PO DAILY 04/18/19 [History Last Taken 04/12/19] multivitamin with minerals 1 ea PO DAILY 04/18/19 [History Last Taken 04/12/19] psyllium 2 tsp PO DAILY PRN g 05/07/19 [History Last Taken Unknown] garlic 2,000 mg PO DAILY 09/05/21 [History Last Taken Unknown] [id number]-[id number]-C-liseth-bosw [Osteo Bi-Flex Triple Strength] 2 tab PO DAILY 09/05/21 [History Last Taken Unknown] meloxicam 15 mg PO DAILY 09/05/21 [History Last Taken Unknown] menthol [Bioflexor] 1 applic TOPICAL TID PRN 09/05/21 [History Last Taken Unknown] turmeric-herbal complex no.278 1 cap PO DAILY 09/05/21 [History Last Taken Unknown] Allergy/AdvReac Type Severity Reaction Status Date / Time Iodinated Contrast Media Allergy Hives Verified 09/05/21 21:43 [DYEE] latex Allergy Hives Verified 09/05/21 21:43 Penicillins Allergy Hives Verified 09/05/21 21:43 Family History Brother Asthma Cancer Mother Heart disease Hypertension Arthritis Father Arthritis Cancer Heart disease Sister Arthritis Heart disease Hypertension Lupus Thyroid disorder Surgical History History of colonoscopy (~05/2019) History of esophagogastroduodenoscopy (EGD) History of esophagogastroduodenoscopy (EGD) (~05/2019) Hx of appendectomy Hx of benign neoplasm Hx of colonoscopy Hx of elbow surgery Hx of foot surgery Hx of hysterectomy Hx of right hemicolectomy Hx of shoulder surgery Hx of tonsillectomy Social History Smoking Status: Former smoker second hand exposure: No alcohol intake: never substance use type: does not use caffeine: Yes what type of physical activity do you participate in: none frequency: does not exercise EXAM Physical Exam Narrative Exam Narrative: 75-year female no acute distress vital signs stable afebrile. Pulse ox 95% on room air no signs hypoxia. H EENT exam unremarkable. Neck nontender no lymphadenopathy. Lungs clear to auscultation bilaterally. Heart regular rate and rhythm no murmur. Abdomen soft nontender. Extremities moves all 4. Calves are nontender without edema or cords. Neurologically she is awake and alert. Well-appearing. Const Vital Signs: 09/05/21 21:44 Temperature 98.8 F Temperature Source Temporal Pulse Rate 106 H Respiratory Rate 18 Blood Pressure 175/74 H Blood Pressure Mean 107 Pulse Ox 95 Positive well nourished and well developed; Negative for obese, cachectic or contractures General Appearance ED: well developed and NAD; Negative for cachectic, contractures, diaphoretic or pallor Nutritional Appearance: Negative for cachectic or obese HEENT Reports moist mucous membranes; Denies dry mucous membranes normocephalic and atraumatic; Negative for scalp tenderness Face and Sinus: Negative for sinus tenderness or facial tenderness Mouth ED: No dry mucous membranes Mouth: No dry mucous membranes Eyes PERRL and EOMs intact bilaterally General Eye ED: Negative for pale conjunctiva or scleral icterus Neck no lymphadenopathy, supple, no meningeal signs and no JVD General: Negative for anterior neck swelling or lymphadenopathy Resp normal respiratory effort and clear to auscultation bilaterally Auscultation: Negative for rales, rhonchi, wheezes or diminished lung sounds Cardio S1 normal heart sound, S2 normal heart sound and no murmurs Rate: regular rate Rhythm: regular rhythm GI non-tender, non-distended and no masses Inspection: Negative for abdominal distention Auscultation: normoactive bowel sounds Palpation: soft; Negative for tender or guarding Back/Spine no CVA tenderness and normal ROM General Back: Negative for CVA tenderness Cervical Spine: Negative for cervical spine tenderness Extremity normal to inspection and full ROM General Extremety ED: Negative for cyanosis or tenderness General Extremity: Negative for cyanosis Neuro oriented x3 and CN's II-XII intact bilaterally Sensorium / Orientation: alert, oriented to person, oriented to place and oriented to time; Negative for orientation impaired, lethargic or stuporous Motor Exam: strength 5/5 throughout Psych mental status grossly normal Mood & Affect: Negative for depressed Skin General Skin Exam: Negative for jaundice or pallor Lesions: no lesions Rashes: no rashes MDM MDM MDM Narrative Medical decision making narrative: 75-year-old female with URI symptoms. Nurses put in protocol for CBC chemistry, chest x-ray and Covid were unremarkable. She will be discharged home with outpatient follow-up. Lab Data Attestation: I reviewed the patient's lab results. Lab results narrative: CBC White count of 6. Hemoglobin 15.1. Electrolytes unremarkable gap of 4 normal BUN and creatinine glucose 102. Rapid Covid test negative. Labs: Laboratory Results - last 24 hr 09/05/21 09/05/21 22:05 22:05 WBC 6.0 RBC 4.92 Hgb 15.1 H Hct 46.0 MCV 93.5 MCH 30.7 MCHC 32.8 RDW Std Deviation 44.5 H RDW Coeff of Jm 12.9 Plt Count 284 MPV 9.6 Immature Gran % (Auto) 0.200 Neut % (Auto) 63.8 Lymph % (Auto) 19.5 [place] % (Auto) 13.5 H Eos % (Auto) 1.3 Baso % (Auto) 1.7 H Absolute Neuts (auto) 3.8 Absolute Lymphs (auto) 1.17 Nucleated RBC % 0 Sodium 139 Potassium 4.0 Chloride 106 Carbon Dioxide 29.0 Anion Gap 4 L BUN 11 Creatinine 0.78 Estim Creat Clear Calc 44.41 Est GFR (MDRD) Af Amer 93 Est GFR (MDRD) Non-Af 77 BUN/Creatinine Ratio 14.2 Glucose 102 Calcium 9.4 Radiography Diagnostic Testing: Clinical Impression(s) from Imaging Studies Chest X-Ray 09/05/21 21:57 IMPRESSION: 1. Tiny left pleural effusion. Electronically Signed: Brett Rincon DO at 22:25 EST Tel , Service support , Chest x-ray, portable, single view interpreted by myself the radiologist shows no acute abnormality. There may be a small tiny left pleural effusion versus atelectasis. There is no infiltrate or pneumonia. Discharge Plan Triage Chief Complaint: Cold Sx ED Provider: Matt Angel Dx/Rx/DC Orders Clinical Impression: Viral URI Instructions: ED URI, Viral, No Abx (Adult) Prescriptions: No Action psyllium Powder 2 tsp PO DAILY PRN (Reason: Constipation) RF: 0 ascorbic acid (vitamin C) 1,000 MG tablet 1,000 mg PO DAILY RF: 0 isosorbide mononitrate 30 MG tablet extended release 24 hr 30 mg PO DAILY RF: 0 aspirin 81 MG tablet 81 mg PO QHS RF: 0 pantoprazole 40 MG tablet 40 mg PO DAILY RF: 0 L.acidoph, paracasei,B. lactis 1 EACH capsule 1 ea PO QHS RF: 0 cholecalciferol (vitamin D3) 1,000 UNIT capsule 2,000 unit PO DAILY RF: 0 multivitamin with minerals 1 EACH tablet 1 ea PO DAILY RF: 0 [place] Red 1 cap PO DAILY RF: 0 meloxicam 15 mg Tablet 15 mg PO DAILY RF: 0 garlic Tablet 2,000 mg PO DAILY RF: 0 Bioflexor Gel 1 applic TOPICAL TID PRN (Reason: Pain) RF: 0 Osteo Bi-Flex Triple Strength 750 mg-644 mg- 30 mg-1 mg Tablet 2 tab PO DAILY RF: 0 turmeric-herbal complex no.278 150 mg Capsule 1 cap PO DAILY RF: 0 Primary Care Provider: Marky Henderson Referrals: Marky Henderson MD [Primary Care Provider] - 1 Week if not improving Activity Restrictions/Additional Instructions: Plenty of fluids and rest. Your chest x-ray, labs and Covid test all were negative. This will be treated as a viral illness. Plenty of fluids and rest. Tylenol for fever and body aches. Follow-up with your doctor if not improving. Return if a lot worse. Disposition Disposition: Home, Self Care
[2021-09-05 23:02] VITALS: BP 133/85; PULSE 10; RESP 20; O2SAT 93
[2021-09-05 23:05] VITALS: O2SAT 93; O2SAT 94
[2021-09-05 23:29] VITALS: BP 134/92; PULSE 101; RESP 18; O2SAT 94
== END 2021-09-05 23:30 | disposition home or self-care (01) ==
LOC: ED 23:16
PROVIDERS: Emergency Medicine; Emergency Provider Emergency Medicine; PCP Family Medicine
DX: J06.9 Acute upper respiratory infection, unspecified (principal); K21.9 Gastro-esophageal reflux disease without esophagitis; M19.90 Unspecified osteoarthritis, unspecified site; I25.10 Atherosclerotic heart disease of native coronary artery without angina pectoris; E11.9 Type 2 diabetes mellitus without complications; I73.9 Peripheral vascular disease, unspecified; Z79.899 Other long term (current) drug therapy; Z87.891 Personal history of nicotine dependence
CPT/HCPCS: 71045; 80048; 85025; 87426; 94760; 99285; A4216

== ENCOUNTER 2021-09-07 10:40 | Emergency (ER) | payer MEDICARE, SELFPAY ==
[2021-09-07] VITALS (7 sets, daily range): BP systolic 91–157; BP diastolic 64–87; PULSE 96–115; RESP 11–30; TEMP 37.2; O2SAT 83–97; BMI 31.7
--- NOTE | 2021-09-07 11:56 | EDS_ITS ---
HPI HPI - URI History of Present Illness Chief Complaint: Sore Throat Narrative Narrative: Patient presents with sore throat, cough of yellow sputum production, intermittent fevers. She states her symptoms began on Monday approximately 5 days ago. However, she was seen 2 days ago and states that her Covid swab was negative. When she went home from her emergency department visit after chest x- ray that was clear, she began coughing more, and had nausea and vomiting/dry heaving. She states that when she is in pain her sugars go up although she states she does not take any medications for diabetes. Her blood sugar was reportedly 199. Additionally, she had loose stool last evening. She now has a cough with yellow sputum production and her throat is sore. She called EMS who brought her to the emergency department because she states that her upper res piratory infection is getting worse. ROS ROS ED ROS Narrative Constitutional: Intermittent fever, no chills. HEENT: Positive sore throat. No neck pain. No loss of vision. No rhinorrhea. Cardiovascular: No chest pain. No palpitations. No pedal edema. Respiratory: Positive productive cough, mild shortness of breath. Abdominal: No abdominal pain. Positive nausea. Positive dry heaving, no vomiting. Positive loose stool/diarrhea Genitourinary: No dysuria. No hematuria. Musculoskeletal: Positive myalgias. Positive arthralgias. Neurologic: No headaches. No dizziness. No lightheadedness. Skin: No rash. No change in color. Psychiatric: No depression. No anxiety. [facility] Medical History Abdominal pain Acid reflux Arthritis Back problem CAD (coronary artery disease) Constipation Diabetes Fatigue Flank pain Heart disease Hemorrhoids Nausea Numbness and tingling PAD (peripheral artery disease) PNA (pneumonia) SOB (shortness of breath) Home Medications ascorbic acid (vitamin C) 1,000 mg PO DAILY 09/29/15 [History Last Taken 04/12/19] aspirin 81 mg PO QHS 09/29/15 [History Last Taken 04/18/19] isosorbide mononitrate 30 mg PO DAILY 09/29/15 [History Last Taken 04/19/19] L.acidoph, paracasei,B. lactis 1 ea PO QHS 06/08/17 [History Last Taken 04/12/19] pantoprazole 40 mg PO DAILY 06/08/17 [History Last Taken 04/19/19] cholecalciferol (vitamin D3) 2,000 unit PO DAILY 08/15/17 [History Last Taken 04/12/19] [place] Red 1 cap PO DAILY 04/18/19 [History Last Taken 04/12/19] multivitamin with minerals 1 ea PO DAILY 04/18/19 [History Last Taken 04/12/19] psyllium 2 tsp PO DAILY PRN g 05/07/19 [History Last Taken Unknown] garlic 2,000 mg PO DAILY 09/05/21 [History Last Taken Unknown] jlvopild-dvnf-blh5-C-liseth-bosw [Osteo Bi-Flex Triple Strength] 2 tab PO DAILY 09/05/21 [History Last Taken Unknown] meloxicam 15 mg PO DAILY 09/05/21 [History Last Taken Unknown] menthol [Bioflexor] 1 applic TOPICAL TID PRN 09/05/21 [History Last Taken Unknown] turmeric-herbal complex no.278 1 cap PO DAILY 09/05/21 [History Last Taken Unknown] albuterol sulfate [Ventolin HFA] 1 - 2 puff INHALATION Q4H PRN PRN #1 ea 09/07/21 [Rx Last Taken Unknown] azithromycin [Zithromax TRI-HOME] 500 mg PO DAILY 3 Days #3 tab 09/07/21 [Rx Last Taken Unknown] Allergy/AdvReac Type Severity Reaction Status Date / Time Iodinated Contrast Media Allergy Hives Verified 09/07/21 10:40 [DYEE] latex Allergy Hives Verified 09/07/21 10:40 Penicillins Allergy Hives Verified 09/07/21 10:40 Family History Brother Asthma Cancer Mother Heart disease Hypertension Arthritis Father Arthritis Cancer Heart disease Sister Arthritis Heart disease Hypertension Lupus Thyroid disorder Surgical History History of colonoscopy (~05/2019) History of esophagogastroduodenoscopy (EGD) History of esophagogastroduodenoscopy (EGD) (~05/2019) Hx of appendectomy Hx of benign neoplasm Hx of colonoscopy Hx of elbow surgery Hx of foot surgery Hx of hysterectomy Hx of right hemicolectomy Hx of shoulder surgery Hx of tonsillectomy Social History Smoking Status: Former smoker second hand exposure: No alcohol intake: never substance use type: does not use caffeine: Yes what type of physical activity do you participate in: none frequency: does not exercise EXAM Physical Exam Narrative Exam Narrative: Afebrile. Vital signs noted. Nontoxic-appearing. HEENT: Normocephalic. Atraumatic. PERRL, EOMI. Neck soft and supple. No point tenderness or step off. Airway patent. No meningismus. Mild pharyngeal erythema. No exudate. Cardiovascular: Regular rate and rhythm. No murmurs, rubs, or gallops appreciated. Respiratory: No tachypnea. Lungs clear to auscultation bilaterally. Gastrointestinal: Abdomen soft, nontender, with normoactive bowel sounds. No rebound or guarding. Neurological: Awake. Alert. Nonfocal, nonlateralizing. Skin: No rash. Normal color. No pallor. Musculoskeletal: No pedal edema. Full range of motion extremities. Const Vital Signs: 09/07/21 10:41 09/07/21 12:07 09/07/21 12:40 Temperature 99.0 F Temperature Source Temporal Pulse Rate 115 H 108 H Respiratory Rate 20 H 30 H Respiratory Effort Non-Labored Short of Breath Blood Pressure 123/68 H 157/81 H Blood Pressure Mean 86 106 Pulse Ox 93 91 Oxygen Delivery Method Room Air Room Air Oxygen Flow Rate (L/min) 09/07/21 12:54 09/07/21 12:56 09/07/21 13:30 Temperature Temperature Source Pulse Rate 102 H 100 101 H Respiratory Rate 21 H 11 L 28 H Respiratory Effort Blood Pressure 91/64 Blood Pressure Mean 73 Pulse Ox 83 93 97 Oxygen Delivery Method Room Air Nasal Cannula Nasal Cannula Oxygen Flow Rate (L/min) 2 2 MDM MDM MDM Narrative Medical decision making narrative: I reviewed her records from 2 days ago. She had a chest x-ray which showed no evidence of pneumonia. However, nurse states that she coughed, and became hypoxic. She was placed on nasal cannula oxygen. Her repeat chest x-ray shows no evidence of infiltrate. Her Covid swab was also negative at that time. I will obtain a rapid PCR because she has all the symptoms of Covid, with a negative antigen test. I will check to see that she is not dehydrated. She was bolused IV fluids and administered ondansetron. Her white count is elevated at 14.7, hemoglobin stable at 14.6, hematocrit 43.9. Her electrolyte panel is grossly unremarkable except for glucose elevated at 152 with a normal anion gap of 8. Lactic acid is normal at 1.3. LFTs are grossly normal. She is negative for strep and influenza. Her Covid PCR is currently pending. I turned off her oxygen per nasal cannula and she is satting 96 to 97% on room air. She will be given a prescription for an albuterol inhaler, and for her sinus problems with postnasal drip, she was given a prescription for an 8 azithromycin Tri-Home. She feels well enough to go home. I feel she can be discharged safely home with follow-up. Return instructions to the emergency department were reviewed. Disposition is discharged home in stable condition. Lab Data Labs: Laboratory Results - last 24 hr 09/07/21 09/07/21 09/07/21 12:30 12:30 12:30 WBC 14.7 H RBC 4.73 Hgb 14.6 Hct 43.9 MCV 92.8 MCH 30.9 MCHC 33.3 RDW Std Deviation 44.9 H RDW Coeff of Jm 13.2 Plt Count 241 MPV 9.7 Immature Gran % (Auto) 0.300 Neut % (Auto) 87.5 H Lymph % (Auto) 4.5 L [place] % (Auto) 7.5 Eos % (Auto) 0.0 Baso % (Auto) 0.2 Absolute Neuts (auto) 12.9 H Absolute Lymphs (auto) 0.66 L Nucleated RBC % 0 Sodium 138 Potassium 4.0 Chloride 103 Carbon Dioxide 27.0 Anion Gap 8 BUN 11 Creatinine 0.85 Estim Creat Clear Calc 50.14 Est GFR (MDRD) Af Amer 84 Est GFR (MDRD) Non-Af 69 BUN/Creatinine Ratio 12.9 Glucose 152 H Lactic Acid 1.3 Calcium 9.2 Total Bilirubin 0.30 AST 57 H ALT 75 H Alkaline Phosphatase 90 Total Protein 8.0 Albumin 3.5 Globulin 4.5 H Albumin/Globulin Ratio 0.8 L Discharge Plan Triage Chief Complaint: Sore Throat ED Provider: Jason Mcintosh Dx/Rx/DC Orders Clinical Impression: URI (upper respiratory infection), Sinusitis Instructions: ED Sinusitis (Antibiotic Treatment), ED URI, Viral, No Abx (Adult) Prescriptions: New albuterol sulfate [Ventolin HFA] 90 mcg/actuation HFA aerosol inhaler 1 - 2 puff inhalation Q4H PRN PRN (Reason: Wheezing) Qty: 1 RF: 0 azithromycin [Zithromax TRI-HOME] 500 mg tablet 500 mg PO DAILY 3 Days Qty: 3 RF: 0 No Action psyllium Powder 2 tsp PO DAILY PRN (Reason: Constipation) RF: 0 ascorbic acid (vitamin C) 1,000 MG tablet 1,000 mg PO DAILY RF: 0 isosorbide mononitrate 30 MG tablet extended release 24 hr 30 mg PO DAILY RF: 0 aspirin 81 MG tablet 81 mg PO QHS RF: 0 pantoprazole 40 MG tablet 40 mg PO DAILY RF: 0 L.acidoph, paracasei,B. lactis 1 EACH capsule 1 ea PO QHS RF: 0 cholecalciferol (vitamin D3) 1,000 UNIT capsule 2,000 unit PO DAILY RF: 0 multivitamin with minerals 1 EACH tablet 1 ea PO DAILY RF: 0 [place] Red 1 cap PO DAILY RF: 0 meloxicam 15 mg Tablet 15 mg PO DAILY RF: 0 garlic Tablet 2,000 mg PO DAILY RF: 0 Bioflexor Gel 1 applic TOPICAL TID PRN (Reason: Pain) RF: 0 Osteo Bi-Flex Triple Strength 750 mg-644 mg- 30 mg-1 mg Tablet 2 tab PO DAILY RF: 0 turmeric-herbal complex no.278 150 mg Capsule 1 cap PO DAILY RF: 0 Primary Care Provider: Marky Henderson Referrals: Marky Henderson MD [Primary Care Provider] - 09/10/21 Disposition Disposition: Home, Self Care
[2021-09-07 12:45] LABS: Absolute Lymphocyte Count 0.66 X10^3/uL (0.83-4.51); Absolute Neutrophil Count 12.9 X10^3/uL (2.0-7.7); Basophil# 0.03 X10^3/uL; Basophil% 0.2 % (0-1); Hematocrit 43.9 % (37-47); Hemoglobin 14.6 g/dL (12.0-15.0); Lymphocyte # 0.66 X10^3/ul (0.83-4.51); Lymphocyte % 4.5 % (19-41); Mean Corp Hgb Conc 33.3 g/dL (32-36); Mean Corpuscular Hgb 30.9 pg (27.0-32.0); Mean Corpuscular Volume 92.8 fL (81-99); Mean Platelet Vol. 9.7 fl (6.2-12.0); Monocyte# 1.11 X10^3/uL; Monocyte% 7.5 % (0-10); NRBC Flagged by Analyzer 0 % (0-5); Neutrophil # 12.87 X10^3/uL (2.7-7.7); Neutrophil % 87.5 % (47-70); Platelet Count 241 K/mm3 (150-450); RBC Distribution Width CV 13.2 % (11.6-14.6); RBC Distribution Width SD 44.9 fl (35.1-43.9); Red Blood Count 4.73 M/mm3 (4.2-5.4); White Blood Count 14.7 K/mm3 (4.4-11.0)
[2021-09-07] MEDS: Ondansetron 4 MG/2 ML Vial IV (12:45)
[2021-09-07 13:04] LABS: ALB/GLOB Ratio 0.8 RATIO (0.9-2.4); AST(SGOT) 57 U/L (15-37); Alanine Aminotransfer ALT/SGPT 75 U/L (13-56); Albumin, Serum 3.5 g/dL (3.2-5.0); Alkaline Phosphatase 90 U/L (45-117); Anion Gap 8 (5-15); BUN 11 mg/dL (7-18); BUN/Creat Ratio 12.9 RATIO (10-20); Calcium,Total 9.2 mg/dL (8.5-10.1); Chloride 103 mmol/L (98-107); Creatinine, Serum 0.85 mg/dL (0.55-1.02); EST Glomerular Filtration Rate 69 mL/min (>60); Est Glom Filt Rate - Afr Amer 84 mL/min (>60); Estimated Creatinine Clearance 50.14 ml/min; Globulin 4.5 g/dL (2.2-4.2); Glucose 152 mg/dL (74-106); Sodium Level 138 mmol/L (136-145)
[2021-09-07 13:10] LABS: Lactic Acid 1.3 mmol/L (0.4-1.9)
--- NOTE | 2021-09-07 13:40 | RAD_ITS ---
STUDY: X-RAY CHEST REASON FOR EXAM: Female, 75 years old. Shortness of breath TECHNIQUE: Single AP portable view of the chest. COMPARISON: Comparison is made with prior study 09/05/2021. FINDINGS: EKG electrodes are seen. There is hyperinflation of the lungs consistent with chronic obstructive lung disease (COPD). There is no demonstrated pleural abnormality. Normal size heart. Normal mediastinum and marjan. Normal visualized pulmonary arteries. There is atherosclerotic calcification of the aortic arch with tortuosity. There are diffuse degenerative changes of the visualized thoracic spine. There is degenerative osteoarthritis of the bilateral shoulders. There is no demonstrated abnormality of the visualized soft tissue structures of the upper abdomen. RAD/Chest 1 View (Portable) IMPRESSION: Hyperinflation. No acute abnormality is seen. Electronically Signed: Delroy Epstein MD at 15:39 EST , Service support ,
[2021-09-07 14:43] LABS: Probe Check PASS; Specimen Processing Control PASS
[2021-09-07] MEDS: dexAMETHasone 4 MG/ML Vial 6 MG IV (15:18)
--- NOTE | 2021-09-07 15:36 | CM.ED ---
MILY Note Referral Source: MD Referral Reason: Home oxygen MILY called Sangeeta at [facility]. She reports that they take [employer]. MILY made referral to her regarding patient. She advised to have patient call [facility] when she gets home. MILY updated ROSA Palacio. Patient will be sent home with oxygen tank. MILY sent email to [employer] regarding home oxygen. Plan: Home with home oxygen Rosey MERCEDES
--- NOTE | 2021-09-07 16:43 | ED.RN ---
Son called asking questions about patients prescriptions. This RN gets verbal permission from patiet to speak with son. He wants patient to be prescribed nebulizer machine with meds and budesonide instead of decadron. Issues addressed with Dr Mcintosh who states he will keep the medications that he prescribed. Son was angry on the phone and asked for the spelling of this RN's name and Dr Mcintosh.
--- NOTE | 2021-09-08 13:51 | CASEMGMT ---
[facility] ED HOME OXYGEN FOLLOW-UP: ROSA LEE comleted follow-up phone call. Patient states she is doing much better. Filled prescriptions and taking medications. Home oxygen was delivered without any difficulty. Patient states she is wearing home oxygen continuously and SPO2 has been at 97%. No follow-up appt schedule. ROSA LEE encourage patient to call PCP office to update on home oxygen and schedule follow-up, patient voiced understanding. Patient had no further questions or concerns.
--- NOTE | 2021-09-09 14:28 | CASEMGMT ---
[facility] ED HOME OXYGEN FOLLOW-UP Patient states she is doing well. Has appt with PCP on 09/15. Patient continues to quarantine at home. Patient continues to wear her oxygen and SPO2 is @ 93%. Patient had no further questions or concerns and states that she does not feel she need continued CM follow-up at this time. ROSA LEE encouraged patient that should she have further questions to follow-up with PCP, patient voiced understanding.
== END 2021-09-07 16:43 | disposition home or self-care (01) ==
PROVIDERS: Emergency Provider Emergency Medicine; PCP Family Medicine
DX: U07.1 COVID-19 (principal); K21.9 Gastro-esophageal reflux disease without esophagitis; M19.90 Unspecified osteoarthritis, unspecified site; I25.10 Atherosclerotic heart disease of native coronary artery without angina pectoris; E11.9 Type 2 diabetes mellitus without complications; Z79.899 Other long term (current) drug therapy; Z87.891 Personal history of nicotine dependence
CPT/HCPCS: 71045; 80053; 83605; 85025; 87635; 87804; 87880; 96361; 96374; 96375; 99285; J7030; U0005; A4216; J2405; U0003